=== PATIENT | female | born 1995 | race Two or more races ===

== ENCOUNTER 2016-03-28 00:01 | Emergency (ER) | payer OTHER ==
[~2016-03-28] VITALS: Ht 157.5 cm; Wt 49.0 kg
[2016-03-28 00:14] VITALS: BP 123/83
[2016-03-28] MEDS ORDERED: NKM (00:18)
[2016-03-28] MEDS ORDERED: IBUPROFEN600 MG ORAL (00:32)
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
[2016-03-28 00:39] VITALS: BP 123/83
== END 2016-03-28 01:00 | disposition home or self-care (01) ==
LOC: EMR 00:48
DX: S16.1XXA Strain of muscle, fascia and tendon at neck level, initial encounter (principal); V43.62XA Car passenger injured in collision with other type car in traffic accident, initial encounter; Y92.410 Unspecified street and highway as the place of occurrence of the external cause
CPT/HCPCS: 99282